=== PATIENT | male | born 1990 | race Caucasian/White ===

== ENCOUNTER 2021-09-09 12:42 | Day surgery (SDC) | payer OTHER ==
[2021-09-04 15:48] VITALS: BMI 33.2
[2021-09-09 12:57] VITALS: TEMP 97.7
[2021-09-09 14:06] VITALS: BP 117/64; PULSE 81
== END 2021-09-09 14:30 | disposition home or self-care (01) ==
LOC: FASU-ENDO 12:42
PROVIDERS: ATTEND Internal Medicine Gastroenterology
PROC: 0DBL8ZX Excision of Transverse Colon, Via Natural or Artificial Opening Endoscopic, Diagnostic (ICD-10-PCS; 2021-09-09)
PROC: 0DBP8ZX Excision of Rectum, Via Natural or Artificial Opening Endoscopic, Diagnostic (ICD-10-PCS; 2021-09-09)
PROC: 0DBM8ZX Excision of Descending Colon, Via Natural or Artificial Opening Endoscopic, Diagnostic (ICD-10-PCS; 2021-09-09)
PROC: 0DBK8ZX Excision of Ascending Colon, Via Natural or Artificial Opening Endoscopic, Diagnostic (ICD-10-PCS; principal; 2021-09-09 13:32)
DX: K64.0 First degree hemorrhoids (principal); K64.8 Other hemorrhoids; R10.9 Unspecified abdominal pain; R19.4 Change in bowel habit
CPT/HCPCS: 88305-TC

== ENCOUNTER 2021-10-17 10:44 | Day surgery (SDC) | payer OTHER ==
[2021-10-17 11:08] VITALS: BMI 32.5
[2021-10-17] MEDS ORDERED: LIDOCAINE HCL/PF 2% SDV 5ML VIAL ONE (11:51)
[2021-10-17] MEDS ORDERED: PROPOFOL 20 ML ONE ×2 (11:51)
[2021-10-17 12:43] VITALS: BP 104/55; PULSE 62; TEMP 98.4
== END 2021-10-17 13:15 | disposition home or self-care (01) ==
LOC: FASU-ENDO 10:44
PROVIDERS: ATTEND Internal Medicine Gastroenterology
PROC: 0DB78ZX Excision of Stomach, Pylorus, Via Natural or Artificial Opening Endoscopic, Diagnostic (ICD-10-PCS; 2021-10-17)
PROC: 0DB48ZX Excision of Esophagogastric Junction, Via Natural or Artificial Opening Endoscopic, Diagnostic (ICD-10-PCS; 2021-10-17)
PROC: 0DB98ZX Excision of Duodenum, Via Natural or Artificial Opening Endoscopic, Diagnostic (ICD-10-PCS; principal; 2021-10-17 12:21)
DX: K29.70 Gastritis, unspecified, without bleeding (principal); B96.81 Helicobacter pylori [H. pylori] as the cause of diseases classified elsewhere; K22.89 Other specified disease of esophagus; K44.9 Diaphragmatic hernia without obstruction or gangrene
CPT/HCPCS: 88305-TC; 88342-TC

== ENCOUNTER 2021-12-12 08:23 | Day surgery (SDC) | payer OTHER ==
[2021-12-12 08:40] VITALS: BMI 32.5
[2021-12-12] MEDS ORDERED: PROPOFOL 20 ML ONE ×4 (08:41)
[2021-12-12] MEDS ORDERED: LIDOCAINE HCL/PF 2% SDV 5ML VIAL ONE (08:41)
[2021-12-12 10:04] VITALS: TEMP 97.2
[2021-12-12 10:34] VITALS: BP 130/77; PULSE 85
== END 2021-12-12 10:30 | disposition home or self-care (01) ==
LOC: FASU-ENDO 08:23
PROVIDERS: ATTEND Internal Medicine Gastroenterology
PROC: 0DB68ZX Excision of Stomach, Via Natural or Artificial Opening Endoscopic, Diagnostic (ICD-10-PCS; principal; 2021-12-12 09:46)
DX: Z13.810 Encounter for screening for upper gastrointestinal disorder (principal); K29.50 Unspecified chronic gastritis without bleeding
CPT/HCPCS: 88305-TC; 88342-TC